=== PATIENT | female | born 1990 | race Caucasian/White ===

== ENCOUNTER 2021-11-02 18:47 | Outpatient (CLI) | payer OTHER | END 2021-11-02 18:48 | disposition EMS.NT | LOC: EMS 18:47 | DX: M54.2 Cervicalgia (principal); V43.52XA Car driver injured in collision with other type car in traffic accident, initial encounter; Y92.414 Local residential or business street as the place of occurrence of the external cause ==

== ENCOUNTER 2021-11-02 20:15 | Emergency (ER) | payer OTHER ==
[2021-11-02 20:33] VITALS: BP 148/87
[2021-11-02] MEDS ORDERED: LIDOCAINE PATCH 5% TOP STA (20:39)
[2021-11-02] MEDS ORDERED: ACETAMINOPHEN 325 MG TABLET PO STA (20:40)
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
== END 2021-11-02 21:18 | disposition home or self-care (01) ==
LOC: ED 20:15
DX: S13.9XXA Sprain of joints and ligaments of unspecified parts of neck, initial encounter (principal); V43.52XA Car driver injured in collision with other type car in traffic accident, initial encounter
CPT/HCPCS: 99282; A9270